=== PATIENT | female | born 1960 | race Caucasian/White ===

== ENCOUNTER 2017-12-11 10:41 | Outpatient (CLI) ==
--- NOTE | 2017-12-11 13:23 | DI ---
Exam: Two views of the right hip. Comparison: None available. Reason for exam: Right hip pain. FINDINGS: No acute fracture or dislocation. Degenerative disease is seen with osteophyte formation and joint space narrowing. Sclerotic changes seen within the acetabulum. The imaged osseous structu res appear diffusely demineralized. Impression: 1. No acute fracture or dislocation in the right hip. 2. Degenerative disease with joint space narrowing and sclerotic change
--- NOTE | 2017-12-11 13:27 | DI ---
Exam: Four views of the right knee. Comparison: None available. Reason for exam: Right knee pain. FINDINGS: No acute fracture or dislocation. The joint spaces are relatively well maintained. No une xplained calcific soft tissue density or radiopaque retained foreign body. Impression: No acute fracture or dislocation is seen in the right knee.
== END 2017-12-11 10:42 | disposition home or self-care (01) ==
LOC: RAD 10:41
PROVIDERS: ATTEND Internal Medicine
DX: M25.551 Pain in right hip (principal); M25.561 Pain in right knee

== ENCOUNTER 2017-12-25 09:33 | Outpatient (CLI) ==
--- NOTE | 2017-12-25 11:00 | MAMMO ---
EXAM: Bilateral digital screening mammogram (2-D and 3-D) History: Screening Comparison: Bilateral mammogram 02/12/2015 Findings: MLO and CC views of bilateral breasts demonstrate scattered fibroglandular breast parenchy ma. CAD was reviewed by the radiologist. Tomosynthesis was performed. There are no dominant masses , no suspicious microcalcifications and no architectural distortions Impression: Stable negative mammogram. Recommend followup routine screening mammography in 1 year. BIRADS 1
== END 2017-12-25 09:34 | disposition home or self-care (01) ==
LOC: RAD 09:33
PROVIDERS: ATTEND Internal Medicine
DX: Z12.31 Encounter for screening mammogram for malignant neoplasm of breast (principal)
CPT/HCPCS: 77067

== ENCOUNTER 2018-02-10 11:00 | Outpatient (RCR) ==
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
--- NOTE | 2018-02-01 12:05 | RS.OPPTDN ---
Subjective Date of Note: 02/01/18 Visit #: 2 Date of Evaluation: 01/28/18 Payer Source: Insurance Treatment Diagnosis: Left shoulder stiffness Current Subjective/complaints:: Patient reports she has been working on HEP and has difficulty with towel stretch for IR of the left shoulder. Reports increased mobility of the left shoulder following treatment today. Pain Assessment - Pain Description Pain Location: left shoulder Pain Description: Tightness, Sharp, Aching Current Pain Intensity: moderate+ at end range - Treatment Modality: Ultrasound Parameters/Method Applied: [id number] at 1.5w/cm2 to the left shoulder with focus on the posterior joint prior to EX. Patient Position: Supine - Heat/Cryotherapy Treatment: Hot Pack ([id number] to the left shoulder prior to US and EX. Patient in supine.) Interventions - Exercise/Activities/Manual Therapy Exercises/Activities: Passive stretching to the left shoulder, with patient in supine. Grades I-II joint distraction of the GH joint, and PROM and stretching in all directions. Patient reports pain with end range flexion. Patient education of HEP and added wall walking into passive left shoulder flexion stretching. In sitting, assisted left shoulder internal rotation. Total minutes of Exercise: 20mins Manual Therapy: NA HOME EXERCISE PROGRAM: stretching into horizontal adduction to stretch posterior capsule, anterior shoulder/chest stretch in door threshold, and towel stretch behind her for internal rotation. Wall walking to passive stretch into flexion. - Charges Timed Code Treatment Minutes: 30mins Total Treatment Time: 50mins Procedures billed for this date of service:: HP, US, EX Assessment: Patient reporting a good response to treatment with increased flexibility of the left shoulder joint. Patient Education: Education of diagnosis, Body/Joint mechanics, Home Exercise Program Patient demonstrates compliance with HEP?: Yes Short Term Goals Goal #1: Pt independent and compliant with HEP. Goal to be met by: 02/05/18 Progress towards Goal:: Progressing Goal #2: Left shoulder PROM WNL's. Goal to be met by: 02/12/18 Progress towards Goal:: Progressing Goal #3: Pt able to touch left thumb to inferior angle of right scapula. Goal to be met by: 02/12/18 Longterm Goals Goal #1: Pt knows HEP and to continue ex's to maintain functional level at D/C. Goal to be met by: 03/10/18 Goal #2: Pt to score reaching behind her, 12/25. Goal to be met by: 03/10/18 Goal #3: Pt to perform all reaching for selfcare and ADL's w/o difficulty or pain. Goal to be met by: 03/10/18 Plan PLAN OF CARE EXPIRES ON:: 03/10/18 ORDER # VISITS AND/OR THROUGH DATE: 03/10/18 PLAN: Continue modalities and progress exercises to increase functional use of the left UE.
--- NOTE | 2018-02-03 12:03 | RS.OPPTDN ---
Subjective Date of Note: 02/03/18 Visit #: 3 Date of Evaluation: 01/28/18 Payer Source: Insurance Treatment Diagnosis: Left shoulder stiffness Current Subjective/complaints:: Patient reports increased pain following last session. States doing better with PROM today. Pain Assessment - Pain Description Pain Location: left shoulder Pain Description: Aching Current Pain Intensity: mod at end range with stretching - Treatment Modality: Ultrasound Parameters/Method Applied: [id number] US at 1.5w/cm2 to the left shoulder with focus on posterior joint. Patient Position: Supine - Heat/Cryotherapy Treatment: Hot Pack ([id number] to the left shoulder joint prior to US and EX. Patient in supine. ) Interventions - Exercise/Activities/Manual Therapy Exercises/Activities: Passive stretching to the left shoulder, with patient in supine. Gentle joint distraction and mobs left shoulder. PROM and stretching in all directions. Manually resisted IR and ER at 45 and 90 degrees shoulder abduction. Patient reports pain with end range flexion and rotation. Patient continues HEP of left shoulder stretching. Total minutes of Exercise: 19mins Manual Therapy: NA HOME EXERCISE PROGRAM: stretching into horizontal adduction to stretch posterior capsule, anterior shoulder/chest stretch in door threshold, and towel stretch behind her for internal rotation. Wall walking to passive stretch into flexion. - Charges Timed Code Treatment Minutes: 29mins Total Treatment Time: 44mins Procedures billed for this date of service:: HP, US, EX Assessment: Patient able to tolerate increased left shoulder PROM today. Patient Education: Education of diagnosis, Body/Joint mechanics, Home Exercise Program Patient demonstrates compliance with HEP?: Yes Short Term Goals Goal #1: Pt independent and compliant with HEP. Goal to be met by: 02/05/18 Progress towards Goal:: Partially Met Goal #2: Left shoulder PROM WNL's. Goal to be met by: 02/12/18 Progress towards Goal:: Progressing Goal #3: Pt able to touch left thumb to inferior angle of right scapula. Goal to be met by: 02/12/18 Prison Goals Goal #1: Pt knows HEP and to continue ex's to maintain functional level at D/C. Goal to be met by: 03/10/18 Goal #2: Pt to score reaching behind her, 8/10. Goal to be met by: 03/10/18 Goal #3: Pt to perform all reaching for selfcare and ADL's w/o difficulty or pain. Goal to be met by: 03/10/18 Plan PLAN OF CARE EXPIRES ON:: 03/10/18 ORDER # VISITS AND/OR THROUGH DATE: 03/10/18 PLAN: Continue modalities and progress ROM of the left shoulder to increase patients functional activity level.
--- NOTE | 2018-02-08 12:04 | RS.OPPTDN ---
Subjective Date of Note: 02/08/18 Visit #: 4 Date of Evaluation: 01/28/18 Payer Source: Insurance Treatment Diagnosis: Left shoulder stiffness Current Subjective/complaints:: Patient reports left shoulder ROM is getting better. States pain at end range with stretching is not as bad. Pain Assessment - Pain Description Pain Location: Left shoulder Current Pain Intensity: mild - Treatment Modality: Ultrasound Parameters/Method Applied: [id number] at 1.5w/cm2 to the left shoulder joint prior to EX. Patient in sitting. Patient Position: Sitting - Heat/Cryotherapy Treatment: Hot Pack ([id number] to the left shoulder prior to US and EX. Patient in sitting. ) Interventions - Exercise/Activities/Manual Therapy Exercises/Activities: Passive stretching to the left shoulder, with patient in supine. Gentle joint distraction and mobs left shoulder. Manually resisted shoulder ext, IR, ER at 45 and 90 degrees shoulder abduction. In sitting, active IR and reaching behind her back. Then self stretching with hands behind her back. She is able to demo left thumb up mid back to nearly the tip of scapula. Total minutes of Exercise: 14mins Manual Therapy: NA HOME EXERCISE PROGRAM: stretching into horizontal adduction to stretch posterior capsule, anterior shoulder/chest stretch in door threshold, and towel stretch behind her for internal rotation. Wall walking to passive stretch into flexion. - Charges Timed Code Treatment Minutes: 24mins Total Treatment Time: 44mins Procedures billed for this date of service:: HP, US, EX Assessment: Patient with reports of improvement of pain and ROM of the left shoulder. Patient Education: Body/Joint mechanics, Home Exercise Program, Activity Modification Patient demonstrates compliance with HEP?: Yes Short Term Goals Goal #1: Pt independent and compliant with HEP. Goal to be met by: 02/05/18 Progress towards Goal:: Partially Met Goal #2: Left shoulder PROM WNL's. Goal to be met by: 02/12/18 Progress towards Goal:: Progressing Goal #3: Pt able to touch left thumb to inferior angle of right scapula. Goal to be met by: 02/12/18 Progress towards Goal:: Progressing Retirement Goals Goal #1: Pt knows HEP and to continue ex's to maintain functional level at D/C. Goal to be met by: 03/10/18 Goal #2: Pt to score reaching behind her, /10. Goal to be met by: 03/10/18 Progress towards goal: Progressing Goal #3: Pt to perform all reaching for selfcare and ADL's w/o difficulty or pain. Goal to be met by: 03/10/18 Progress towards goal: Progressing Plan PLAN OF CARE EXPIRES ON:: 03/10/18 ORDER # VISITS AND/OR THROUGH DATE: 03/10/18 PLAN: Continue modalities and exercise to reduce pain and increase functional activity level.
--- NOTE | 2018-02-10 13:41 | RS.OPPTDN ---
Subjective Date of Note: 02/10/18 Visit #: 5 Date of Evaluation: 01/28/18 Payer Source: Insurance Treatment Diagnosis: Left shoulder stiffness Current Subjective/complaints:: Patient reports some increased soreness left shoulder. States she did more IR stretching the last seew days and that has aggravated soreness. Pain Assessment - Pain Description Pain Location: left shoulder Pain Description: Tightness Pain Description: soreness Current Pain Intensity: mild - Treatment Modality: Ultrasound Parameters/Method Applied: [id number] at 1.5w/cmc2 to the left shoulder joint prior to EX. Patient Position: Sitting - Heat/Cryotherapy Treatment: Hot Pack ([id number] to left shoulder prior to US and EX. patient in sitting. ) Interventions - Exercise/Activities/Manual Therapy Exercises/Activities: Passive stretching to the left shoulder, with patient in sitting today. Manually resisted shoulder add, abd, ext, IR, and ER with shoulder at diffiernt positions. Began yellow theraband for bilateral shoulder ER to strengthen posture and left posterior shoulder joint. Total minutes of Exercise: 19mins Manual Therapy: NA HOME EXERCISE PROGRAM: stretching into horizontal adduction to stretch posterior capsule, anterior shoulder/chest stretch in door threshold, and towel stretch behind her for internal rotation. Wall walking to passive stretch into flexion. Yellow theraband for bilateral shoulder ER. - Charges Timed Code Treatment Minutes: 29mins Total Treatment Time: 49mins Procedures billed for this date of service:: HP, US, EX Assessment: Patient continues to have soreness at end range with passive stretching. Patient Education: Body/Joint mechanics, Home Exercise Program, Home Safety Patient demonstrates compliance with HEP?: Yes Short Term Goals Goal #1: Pt independent and compliant with HEP. Goal to be met by: 02/05/18 Progress towards Goal:: Partially Met Goal #2: Left shoulder PROM WNL's. Goal to be met by: 02/12/18 Progress towards Goal:: Progressing Goal #3: Pt able to touch left thumb to inferior angle of right scapula. Goal to be met by: 02/12/18 Progress towards Goal:: Progressing Senior Care Goals Goal #1: Pt knows HEP and to continue ex's to maintain functional level at D/C. Goal to be met by: 03/10/18 Goal #2: Pt to score reaching behind her, 8/10. Goal to be met by: 03/10/18 Progress towards goal: Partially Met Goal #3: Pt to perform all reaching for selfcare and ADL's w/o difficulty or pain. Goal to be met by: 03/10/18 Progress towards goal: Progressing Plan PLAN OF CARE EXPIRES ON:: 03/10/18 ORDER # VISITS AND/OR THROUGH DATE: 03/10/18 PLAN: Progress with ROM and gentle strengtheing to reduce pain and increase patients functional use of the left UE.
== END 2018-02-14 23:59 ==
PROVIDERS: ATTEND Orthopaedic Surgery
DX: M25.512 Pain in left shoulder (principal); M25.612 Stiffness of left shoulder, not elsewhere classified

== ENCOUNTER 2018-02-26 11:00 | Outpatient (RCR) ==
--- NOTE | 2018-02-15 16:14 | RS.OPPTDN ---
Subjective Date of Note: 02/15/18 Visit #: 6 Date of Evaluation: 01/28/18 Payer Source: Insurance Treatment Diagnosis: Left shoulder stiffness Current Subjective/complaints:: Patient reports a reduction in pain with active reaching with the left UE. States she continues to have discomfort with left UE reaching behind back, but has increase motion. Pain Assessment - Pain Description Pain Location: left shoulder Current Pain Intensity: mild to mod at end range, no pain at rest - Treatment Modality: Ultrasound Parameters/Method Applied: [id number] at 1.5w/cm2 to the left shoulder joint prior to EX. Patient Position: Sitting - Heat/Cryotherapy Treatment: Hot Pack ([id number] to the left shoulder prior to US and EX. Patient in sitting. ) Interventions - Exercise/Activities/Manual Therapy Exercises/Activities: Passive stretching to the left shoulder, with patient in sitting today. Manually resisted isometric shoulder add, abd, ext, IR, and ER with shoulder at different positions. Active and active assisted left IR and reaching behind her back. She is able to reach left hand to approx 2 inches below the distal right scapula, which is a significant improvement. Total minutes of Exercise: 17mins Manual Therapy: NA HOME EXERCISE PROGRAM: stretching into horizontal adduction to stretch posterior capsule, anterior shoulder/chest stretch in door threshold, and towel stretch behind her for internal rotation. Wall walking to passive stretch into flexion. Yellow theraband for bilateral shoulder ER. - Objective Findings Observations,measurements,etc.: Demos increased left shoulder IR while reaching behind the back. Reaches left hand to approx 2 inches below the right distal scapula. - Charges Timed Code Treatment Minutes: 27mins Total Treatment Time: 49mins Procedures billed for this date of service:: HP, US, EX Assessment: Patients AROM increasing and pain decreasing. Patient Education: Body/Joint mechanics, Home Exercise Program, Home Safety Patient demonstrates compliance with HEP?: Yes Short Term Goals Goal #1: Pt independent and compliant with HEP. Goal to be met by: 02/05/18 Progress towards Goal:: Met Goal #2: Left shoulder PROM WNL's. Goal to be met by: 02/12/18 Progress towards Goal:: Progressing Goal #3: Pt able to touch left thumb to inferior angle of right scapula. 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 Goal to be met by: 03/10/18 Progress towards goal: Progressing Goal #2: Pt to score reaching behind her, 12/25. Goal to be met by: 03/10/18 Progress towards goal: Partially Met Goal #3: Pt to perform all reaching for selfcare and ADL's w/o difficulty or pain. Goal to be met by: 03/10/18 Progress towards goal: Partially Met Plan PLAN OF CARE EXPIRES ON:: 03/10/18 ORDER # VISITS AND/OR THROUGH DATE: 03/10/18 PLAN: Progress with ROM and strengthening activities.
--- NOTE | 2018-02-19 12:06 | RS.OPPTDN ---
Subjective Date of Note: 02/19/18 Visit #: 7 Date of Evaluation: 01/28/18 Payer Source: Insurance Treatment Diagnosis: Left shoulder stiffness Current Subjective/complaints:: Patient reports improvement in left UE reaching all directions including IR and reaching behind her back. States she can now reach back to pocket and can use the left arm to put on a belt. She does report she continues to have difficulty with hooking bra. Pain Assessment - Pain Description Pain Location: left shoulder Current Pain Intensity: no pain at rest, mild to mod at end range - Treatment Modality: Ultrasound Parameters/Method Applied: [id number] at 1.5w/cm2 to the left shoulder joint prior to EX. Patient Position: Sitting - Heat/Cryotherapy Treatment: Hot Pack ([id number] to the left shoulder prior to US and EX. patient in sitting. ) Interventions - Exercise/Activities/Manual Therapy Exercises/Activities: Passive stretching to the left shoulder, with patient in sitting today. Isometric shoulder add, abd, ext, IR, and ER. Active and active assisted left IR and reaching behind her back. She is able to reach left hand up to approx 1 inches below the distal right scapula today, which is continued improvement. Ended with additional passive left shoulder joint stretching. Total minutes of Exercise: 16mins Manual Therapy: NA HOME EXERCISE PROGRAM: stretching into horizontal adduction to stretch posterior capsule, anterior shoulder/chest stretch in door threshold, and towel stretch behind her for internal rotation. Wall walking to passive stretch into flexion. Yellow theraband for bilateral shoulder ER. - Charges Timed Code Treatment Minutes: 26mins Total Treatment Time: 46mins Procedures billed for this date of service:: HP, US, EX Assessment: Patient demos an increase in AROM including IR of left shoulder while reaching behind back. She also reports improvement in functional use of the left UE. Patient Education: Body/Joint mechanics, Home Exercise Program Patient demonstrates compliance with HEP?: Yes Short Term Goals Goal #1: Pt independent and compliant with HEP. Goal to be met by: 02/05/18 Progress towards Goal:: Met Goal #2: Left shoulder PROM WNL's. Goal to be met by: 02/12/18 Progress towards Goal:: Partially Met Goal #3: Pt able to touch left thumb to inferior angle of right scapula. 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 Goal to be met by: 03/10/18 Progress towards goal: Progressing Goal #2: Pt to score reaching behind her, 12/25. Goal to be met by: 03/10/18 Progress towards goal: Partially Met Goal #3: Pt to perform all reaching for selfcare and ADL's w/o difficulty or pain. Goal to be met by: 03/10/18 Progress towards goal: Partially Met Plan PLAN OF CARE EXPIRES ON:: 03/10/18 ORDER # VISITS AND/OR THROUGH DATE: 03/10/18 PLAN: Continue modalities and progress exercise to increase functional use of the left shoulder.
--- NOTE | 2018-02-22 16:05 | RS.CXNS ---
Date of scheduled appointment: 02/22/18 Type: Cancel (Patient called to cancel and rescedule todays appointment. States she has a meeting at work.)
--- NOTE | 2018-02-24 15:46 | RS.OPPTDN ---
Subjective Date of Note: 02/24/18 Visit #: 8 Date of Evaluation: 01/28/18 Payer Source: Insurance Treatment Diagnosis: Left shoulder stiffness Current Subjective/complaints:: Patient reports reaching behind her back continues to improve. Pain Assessment - Pain Description Pain Location: left shoulder Current Pain Intensity: no pain at rest, mod with overhead reaching inot flexion and abduction - Treatment Modality: Ultrasound Parameters/Method Applied: [id number] at 1.5w/cm2 to the left shoulder joint prior to EX. Patient Position: Sitting - Heat/Cryotherapy Treatment: Hot Pack ([id number] to the left shoulder prior to US and EX. patient in sitting. ) Interventions - Exercise/Activities/Manual Therapy Exercises/Activities: Passive stretching to the left shoulder, with patient in sitting today. Isometric shoulder add, abd, ext, IR, and ER. Active and active assisted left IR and reaching behind her back. She is able to demonstrate active left shoulder IR and adduction behind back to approx 1/2 inch below scapula. Increased to red theraband for bilateral shoulder ER, 2s/10reps. Total minutes of Exercise: 16mins Manual Therapy: NA HOME EXERCISE PROGRAM: stretching into horizontal adduction to stretch posterior capsule, anterior shoulder/chest stretch in door threshold, and towel stretch behind her for internal rotation. Wall walking to passive stretch into flexion. Increased to red theraband for bilateral shoulder ER. - Charges Timed Code Treatment Minutes: 26mins Total Treatment Time: 46mins Procedures billed for this date of service:: HP, US, EX Assessment: Patient progressing with AROM. Patient Education: Home Exercise Program Comments: Patient given red theraband for progressive resistive bilateral shoulder ER. Patient demonstrates compliance with HEP?: Yes Short Term Goals Goal #1: Pt independent and compliant with HEP. Goal to be met by: 02/05/18 Progress towards Goal:: Met Goal #2: Left shoulder PROM WNL's. Goal to be met by: 02/12/18 Progress towards Goal:: Partially Met Goal #3: Pt able to touch left thumb to inferior angle of right scapula. Goal to be met by: 02/12/18 Progress towards Goal:: Partially Met Assisted Goals Goal #1: Pt knows HEP and to continue ex's to maintain functional level at D/C. Goal to be met by: 03/10/18 Progress towards goal: Partially Met Goal #2: Pt to score reaching behind her, 12/25. Goal to be met by: 03/10/18 Progress towards goal: Partially Met Goal #3: Pt to perform all reaching for selfcare and ADL's w/o difficulty or pain. Goal to be met by: 03/10/18 Progress towards goal: Partially Met Plan PLAN OF CARE EXPIRES ON:: 03/10/18 ORDER # VISITS AND/OR THROUGH DATE: 03/10/18 PLAN: Continue and progress AROM this week to increase patients functional use of the left UE.
--- NOTE | 2018-02-26 12:11 | RS.OPPTDN ---
Subjective Date of Note: 02/26/18 Visit #: 9 Number of visits approved by Insurance: NA Date of Evaluation: 01/28/18 Payer Source: Insurance Treatment Diagnosis: Left shoulder stiffness Current Subjective/complaints:: Patient reports she has progressed well. She reports no pain at rest, an increase in AROM, and ability to use the left UE with all ADL's. States she feels she has reached a limit in progress at this time. States she will continue HEP following discharge. Pain Assessment - Pain Description Pain Location: left shoulder Current Pain Intensity: no pain at rest, discomfort at end range reaching - Treatment Modality: Ultrasound Parameters/Method Applied: [id number] at 1.5w/cm2 to the left shoulder prior to EX. Patient Position: Sitting - Heat/Cryotherapy Treatment: Hot Pack ([id number] to the left shoulder prior to US and EX. Patient in sitting. ) Interventions - Exercise/Activities/Manual Therapy Exercises/Activities: Passive stretching to the left shoulder, with patient in sitting today. Isometric shoulder add, abd, ext, IR, and ER. Single left shoulder resisted IR and ER with green theraband, 2s/10reps. Active left shoulder flexion to approx 150 degrees that is equal to right shoulder flexion. Total minutes of Exercise: 14mins Manual Therapy: NA HOME EXERCISE PROGRAM: stretching into horizontal adduction to stretch posterior capsule, anterior shoulder/chest stretch in door threshold, and towel stretch behind her for internal rotation. Wall walking to passive stretch into flexion. Increased to red theraband for bilateral shoulder ER. - Objective Findings Observations,measurements,etc.: Demos left shoulder flexion equal to right. - Charges Timed Code Treatment Minutes: 24mins Total Treatment Time: 44mins Procedures billed for this date of service:: HP, US, EX Assessment: Patient has progressed with increased motion, decreased pain, and increased functional use of the left UE. Patient Education: Body/Joint mechanics, Home Exercise Program, Activity Modification Patient demonstrates compliance with HEP?: Yes Short Term Goals Goal #1: Pt independent and compliant with HEP. Goal to be met by: 02/05/18 Progress towards Goal:: Met Goal #2: Left shoulder PROM WNL's. Goal to be met by: 02/12/18 Progress towards Goal:: Partially Met Comments:: Left shoulder WFL Goal #3: Pt able to touch left thumb to inferior angle of right scapula. Goal to be met by: 02/12/18 Progress towards Goal:: Partially Met [facility] Goals Goal #1: Pt knows HEP and to continue ex's to maintain functional level at D/C. Goal to be met by: 03/10/18 Progress towards goal: Met Goal #2: Pt to score reaching behind her, 12/25. Goal to be met by: 03/10/18 Progress towards goal: Met Goal #3: Pt to perform all reaching for selfcare and ADL's w/o difficulty or pain. Goal to be met by: 03/10/18 Progress towards goal: Partially Met Plan Dates of [facility] Goals: 03/10/18 Expiration date of current Insurance Approval:: NA PLAN: Discharge with HEP.
--- NOTE | 2018-03-15 08:55 | RS.QUICKDC ---
Discharge from PT Date of Discharge: 03/15/18 Number of Visits: 9 Reason for Discharge: Patient progressed well and benefitted from treatment. She reported a reduction in pain and increase in functional use of the left UE. Discharge with HEP.
== END 2018-03-17 23:59 ==
PROVIDERS: ATTEND Orthopaedic Surgery
DX: M25.512 Pain in left shoulder (principal); M25.612 Stiffness of left shoulder, not elsewhere classified

== ENCOUNTER 2018-09-22 06:37 | Outpatient (CLI) ==
--- NOTE | 2018-09-22 09:19 | ECHO2D ---
Date of Exam: 09/22/18 Ordering Physician: DR. BAM BRISENO Room #: OP Reason for Echo: ABNORMAL EKG, PRE SURG CLEARANCE M-Mode Normal Adult Results LV Dimensions Normal Adult Results AoV Opening excursions >1.6 >1.6 LVEDD-base- 3.5-5.8 4.9 Ao root dimensions 2.0-3.7 3.3 LVESD-base- 3.1-4.6 L. Atrium dimensions 1.9-3.8 3.6 Post. Wall thickness 0.8-1.1 1.2 IV septum (thickness) 0.7-1.2 1.1 Post. Wall excursion 0.72-1.3 NORMAL Septal motion NORMAL Systolic motion R. Ventricular cavity 1.5-2.0 NORMAL LVEF 60% 52% Paradoxical septal wall motion NORMAL 2-D : 2-D M Mode Echocardiogram was performed using apical four chamber and left parasternal long and short axis views. Mitral, tricuspid and aortic valves appear to be normal. Contractility of the left ventricle seems to be normal, so is the cavity size. Left atrial cavity size and aortic root appear to be normal. There is no pericardial effusion. There is no thrombus noted in the left ventricular or left aortic cavity. No mitral valve prolapse noted. M-MODE: MV: NORMAL AV: NORMAL TV: NORMAL PV: CHAMBER SIZE: NORMAL WALL MOTION: NORMAL PERICARDIUM: NORMAL INTERPRETATION: 1. NORMAL 2 "D" "M" MODE ECHO MTDD
== END 2018-09-22 06:38 | disposition home or self-care (01) ==
LOC: CAR 06:37
PROVIDERS: ATTEND Internal Medicine
DX: R94.31 Abnormal electrocardiogram [ECG] [EKG] (principal); Z01.810 Encounter for preprocedural cardiovascular examination

== ENCOUNTER 2018-09-23 06:37 | Outpatient (CLI) ==
--- NOTE | 2018-09-23 09:24 | ECHOSTRESS ---
Date of Exam: 09/23/18 Ordering Physician: DR. BAM BRISENO Reason for Echo: ABNORMAL EKG, PRE SURGICAL CLEARANCE, STRESS TEST--NO ISCHEMIA M-Mode Normal Adult Results LV Dimensions Normal Adult Results AoV Opening excursions >1.6 LVEDD-base- 3.5-5.8 Ao root dimensions 2.0-3.7 LVESD-base- 3.1-4.6 L. Atrium dimensions 1.9-3.8 Post. Wall thickness 0.8-1.1 IV septum (thickness) 0.7-1.2 Post. Wall excursion 0.72-1.3 Septal motion Systolic motion R. Ventricular cavity 1.5-2.0 LVEF 60% Paradoxical septal wall motion 2-D: NORMAL LEFT VENTRICULAR CONTRACTILITY--RESTING AND POST EXERCISE M-MODE: MV: AV: TV: PV: CHAMBER SIZE: WALL MOTION: NORMAL LEFT VENTRICULAR CONTRACTILITY--RESTING AND POST EXERCISE PERICARDIUM: INTERPRETATION: 1. NORMAL LEFT VENTRICULAR CONTRACTILITY--RESTING AND POST EXERCISE TECHNICAL DIFFICULTIES--ENABLE TO RECORD POST EXERCISE IMAGES MTDD
--- NOTE | 2018-09-23 09:38 | STRESSMOD ---
Date of Test: 09/23/18 Ordering Physician: DR. 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[employer] Reason for Exam: ABNORMAL EKG, PRE SURGICAL CLEARANCE Height: 68" Weight: 180 LBS Current Medications: TENORMIN, ASA, CALCIUM-D, PRAVASTATIN Resting EKG: SINUS RHYTHM/ NO ACUTE CHANGES Target Heart Rate: 136/161 S-T SEGMENT STAGE MPH/GRADE HEART RATE BPM BLOOD PRESSURE mmhg RHYTHM +/- ELEVATION DEPRESSION SYMPTOMS At Rest 60 138/68 SR X NONE 1 1.7/0% 90 140/80 SR X NONE 2 1.7/5% 95 152/70 SR X NONE 3 1.7/10% 110 160/80 SR X NONE 4 2.5/12% 5 3.4/14% Immediately After 135 158/82 SR X FATIGUE Minutes Post Exercise 4:00 65 128/64 SR X NONE Minutes Post Exercise DURATION OF EXERCISE: 12:14 MAXIMUM HEART RATE REACHED: 135 REASON FOR TERMINATION: FATIGUE 97% OXYGEN SATURATION WITH EXERCISE ON ROOM AIR METS 7.8 INTERPRETATION: 1. NO EVIDENCE OF ISCHEMIA BY ST-T WAVE 2. NO CHEST PAIN OR DISCOMFORT 3. RARE PVC'S 4. NORMAL BLOOD PRESSURE RESPONSE NORMAL LEFT VENTRICULAR CONTRACTILITY--RESTING AND POST EXERCISE MTDD
== END 2018-09-23 06:38 | disposition home or self-care (01) ==
LOC: CAR 06:37
PROVIDERS: ATTEND Internal Medicine
DX: R94.31 Abnormal electrocardiogram [ECG] [EKG] (principal); Z01.810 Encounter for preprocedural cardiovascular examination